=== PATIENT | male | born 1945 | race Caucasian/White ===

== ENCOUNTER 2018-12-18 08:46 | Outpatient (CLI) | payer OTHER | END 2018-12-18 23:59 | disposition home or self-care (01) | LOC: PETCFH 08:46 | PROVIDERS: ATTEND Internal Medicine Hematology & Oncology | DX: D37.6 Neoplasm of uncertain behavior of liver, gallbladder and bile ducts (principal); J43.2 Centrilobular emphysema; K11.8 Other diseases of salivary glands; K76.89 Other specified diseases of liver; D73.89 Other diseases of spleen; E78.5 Hyperlipidemia, unspecified | CPT/HCPCS: 78815; A9552 ==